=== PATIENT | female | born 1980 | race Caucasian/White ===

== ENCOUNTER 2021-01-27 20:59 | Emergency (ER) | payer BC, SELFPAY ==
[2021-01-27 21:10] VITALS: BP 146/88; PULSE 84; RESP 16; TEMP 36.9; O2SAT 98; BMI 24.1
--- NOTE | 2021-01-27 21:17 | ED.ALLEREA ---
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 in the morning and then noted at approximately 8:00 p.m. the development of hives with some patchy redness noted to the anterior neck and noting that she had some audible wheezing. She denies any lip/facial/tongue swelling and otherwise denies any history of asthma, but does have some noted seasonal allergies but states that she has never had an issue with her breathing ?like now?. Related Data Allergies Allergy/AdvReac Type Severity Reaction Status Date / Time Sulfa (Sulfonamide Allergy Mild RASH Verified 01/27/21 21:08 Antibiotics) [SULFA (SULFONAMIDE ANTIBIOTICS)] Review of Systems Review of Systems: Pertinent positives and negatives as stated in HPI 10 point review systems is otherwise negative. PMFSH Past Medical History Source: nursing notes reviewed Social History Social History Alcohol intake: never Smoking Status: Never smoker Use of substances other than those prescribed or required for medical reasons: No Advance Directives: No Physical Exam Vital Signs: Vital Signs: Last Vital Signs Temp 98.5 F 01/27/21 21:10 Pulse 75 01/27/21 23:32 Resp 19 01/27/21 23:32 BP 113/67 01/27/21 23:32 Pulse Ox 100 01/27/21 23:32 Body Mass Index 24.1 VITAL SIGNS: Reviewed. GENERAL: Well developed, well nourished, in no acute distress. HEAD: Normocephalic/atraumatic, EYES: PERRLA, EOMI NOSE: Nares patent bilateral OROPHARYNX: no oral lesions noted, posterior pharynx clear, there is no lip/facial/tongue swelling noted. NECK: Supple, no adenopathy LUNGS: No tachypnea, there is noted bilateral/diffuse expiratory wheezes noted SpO2<98> CARDIOVASCULAR: Regular rate and rhythm without noted murmurs ABDOMEN: Soft, non-tender, non-distended with bowel sounds. LEFT HAND: There is a noted first-degree burn to the dorsal aspect of the hand that was sustained while cooking. SKIN: Inspection of the skin reveals hives to bilateral upper extremities (minimal). NEUROLOGIC: Alert and oriented x 4. Course Course Course Narrative: This is a 40-year-old female with history and clinical presentation most consistent with allergic reaction to COVID-19 vaccine as there are no other identifiable exposures in the history. Review of all investigations is without acute findings and patient has progressively had complete resolution of her respiratory symptoms and on repeat exam there are no longer any expiratory wheezing noted. Reevaluation(s) Reevaluation #1: Re-evaluation and patient reports improvement of respiratory symptoms and on auscultation there is noted improvement in expiratory wheezing. Time: 21:55 MDM - Allergic Reaction Lab Data Result diagrams: 01/27/21 21:27 01/27/21 22:05 Labs: Lab Results 01/27/21 01/27/21 Range/Units 21:27 22:05 WBC 7.0 (4.8-10.8) X10*3/uL RBC 4.35 (4.20-5.50) X10*6/uL Hgb 12.7 (12.0-16.0) g/dl Hct 37.8 (37-47) % MCV 86.9 (80-98) fL MCH 29.2 (27.0-33.0) pg MCHC 33.6 (31.0-35.0) g/dl RDW 12.3 (11.0-16.0) % Plt Count 183 (160-400) X10*3/uL MPV 9.9 (9.4-12.3) fL Immature Gran % (Auto) 0.4 (0.0-0.4) % Neut % (Auto) 47.9 (45-73) % Lymph % (Auto) 36.8 (20-40) % [place] % (Auto) 8.7 (2-11) % Eos % (Auto) 5.3 H (0-4) % Baso % (Auto) 0.9 (0-2) % Lymph # (Auto) 2.6 (1.2-4.9) X10*3/uL [place] # (Auto) 0.6 (0.1-1.2) X10*3/uL Eos # (Auto) 0.4 (0.0-0.4) X10*3/uL Baso # (Auto) 0.1 (0.0-0.2) X10*3/uL Abs Immat Gran (auto) 0.03 (0.00-0.03) X10*3/uL Absolute Neuts (auto) 3.4 (2.0-8.3) X10*3/uL Absolute Nucleated RBC 0.000 (0.0-0.012) X10*3/uL Nucleated RBC % (auto) 0.0 (0.0-0.2) /100WBC Sodium 141 (135-145) mmol/L Potassium 4.0 (3.3-5.1) mmol/L Chloride 105 (96-108) mmol/L Carbon Dioxide 25 (22-29) mmol/L Anion Gap 15 (12-20) BUN 18 H (9-16) mg/dL Creatinine 1.01 (0.5-1.4) mg/dL Estim Creat Clear Calc 71.2 Estimated GFR > 60 Random Glucose 92 (60-115) mg/dL Calcium 8.6 (8.4-10.2) mg/dL Total Bilirubin 0.2 (0.0-1.0) mg/dL AST 19 (5-31) U/L ALT 11 (0-31) U/L Alkaline Phosphatase 56 (39-117) U/L Total Protein 6.7 (6.5-8.0) g/dL Albumin 4.3 (3.5-5.0) g/dL Discharge Plan Discharge Clinical Impression: Allergic reaction, Adverse drug reaction, Burn Patient Disposition: Home, Self-Care Instructions: General Allergic Reaction (ED) Additional Instructions: 1.Recommend using [id number] Benadryl as directed on the outside packaging for the next 24 hours as needed for recurrence of symptoms. 2. Apply antibiotic ointment or aloe vera to superficial burn of left hand. Do not hesitate to return to the emergency room if you develop any acute worsening of your symptoms. Referrals: Emmie Trejo MD [Primary Care Provider] - 2 days (Re-evaluation of allergic reaction symptoms after receiving COVID-19 vaccine. )
[2021-01-27 21:32] LABS: MANUAL DIFF FLAG NO
[2021-01-27] MEDS: diphenhydrAMINE HCL 50 MG/ML VIAL IVPUSH (21:32)
[2021-01-27] MEDS: methylPREDNISolone Sod Succ 125 MG/2 ML VIAL IVPUSH (21:32)
[2021-01-27] MEDS: Famotidine/PF 20 MG/2 ML VIAL IVPUSH (21:32)
[2021-01-27 21:36] LABS: Basophils Absolute Auto 0.1 X10*3/uL (0.0-0.2); Basophils Percent Auto 0.9 % (0-2); Eosinophils Absolute Auto 0.4 X10*3/uL (0.0-0.4); Eosinophils Percent Auto 5.3 % (0-4); Hematocrit 37.8 % (37-47); Hemoglobin 12.7 g/dl (12.0-16.0); Imm Gran Abs Auto 0.03 X10*3/uL (0.00-0.03); Imm Gran Pct Auto 0.4 % (0.0-0.4); Lymphocytes Absolute Auto 2.6 X10*3/uL (1.2-4.9); Lymphocytes Percent Auto 36.8 % (20-40); Mean Corpuscular HGB Conc 33.6 g/dl (31.0-35.0); Mean Corpuscular Hemoglobin 29.2 pg (27.0-33.0); Mean Corpuscular Volume 86.9 fL (80-98); Mean Platelet Volume 9.9 fL (9.4-12.3); Monocytes Absolute Auto 0.6 X10*3/uL (0.1-1.2); Monocytes Percent Auto 8.7 % (2-11); Neutrophils Absolute Auto 3.4 X10*3/uL (2.0-8.3); Neutrophils Percent Auto 47.9 % (45-73); Platelet Count 183 X10*3/uL (160-400); Red Blood Count 4.35 X10*6/uL (4.20-5.50); Red Cell Distribution Width 12.3 % (11.0-16.0)
[2021-01-27 22:00] VITALS: BP 119/74; PULSE 80; RESP 18; O2SAT 97
[2021-01-27 22:46] LABS: Alanine Aminotransferase 11 U/L (0-31); Albumin Level 4.3 g/dL (3.5-5.0); Alkaline Phosphatase 56 U/L (39-117); Anion Gap 15 (12-20); Aspartate Amino Transferase 19 U/L (5-31); Blood Urea Nitrogen 18 mg/dL (9-16); Calcium 8.6 mg/dL (8.4-10.2); Carbon Dioxide 25 mmol/L (22-29); Chloride 105 mmol/L (96-108); Creatinine Clr Calc Pharmacy 71.2; Estimated Glomerular Filt Rate > 60; Glucose Random 92 mg/dL (60-115); Sodium 141 mmol/L (135-145); Total Protein 6.7 g/dL (6.5-8.0)
[2021-01-27 22:55] LABS: Bilirubin Total 0.2 mg/dL (0.0-1.0)
[2021-01-27 23:32] VITALS: BP 113/67; PULSE 75; RESP 19; O2SAT 100
== END 2021-01-27 23:53 | disposition home or self-care (01) ==
PROVIDERS: Emergency Provider Student in an Organized Health Care Education/Training Program; PCP Internal Medicine
DX: L50.9 Urticaria, unspecified (principal); T50.Z95A Adverse effect of other vaccines and biological substances, initial encounter; Y92.019 Unspecified place in single-family (private) house as the place of occurrence of the external cause; T23.162A Burn of first degree of back of left hand, initial encounter; T31.0 Burns involving less than 10% of body surface; X10.2XXA Contact with fats and cooking oils, initial encounter; Y93.G3 Activity, cooking and baking; Y92.010 Kitchen of single-family (private) house as the place of occurrence of the external cause; Y99.8 Other external cause status
CPT/HCPCS: 36415; 80053; 85025; 96374; 96375; 99284; J1200; J2930

== ENCOUNTER 2022-07-30 22:05 | Emergency (ER) | payer BC, SELFPAY ==
[2022-07-30 22:46] VITALS: BP 152/94; PULSE 85; RESP 18; TEMP 36.8; O2SAT 100; BMI 26.9
[2022-07-30] MEDS: Ibuprofen 600 MG TABLET PO (22:58)
== END 2022-07-31 04:10 | disposition left against medical advice (07) ==
PROVIDERS: Emergency Provider Emergency Medicine
DX: M54.50 Low back pain, unspecified (principal)
CPT/HCPCS: 99281; 99282; 99283